=== PATIENT | male | born 1990 | race Hispanic/Latino ===

== ENCOUNTER 2019-11-08 16:26 | Emergency (ER) | payer SELFPAY ==
[2019-11-08] MEDS ORDERED: HYDROcodone/Acetaminophen 10/325 mg Tablet ONE (17:13)
[2019-11-08] MEDS ORDERED: Ketorolac Tromethamine 30 MG/ML VIAL ONE (17:58)
--- NOTE | 2019-11-08 18:14 | CT ---
NONCONTRAST CT HEAD: 11/08/19 HISTORY: Head injury after ladder fell on head and neck. Headache with pain running down medial occipital juany on. COMPARISON: None. FINDINGS: There is no evidence of a hemorrhage, acute infarction, mass effect, or midline shift. The ventricula r system is normal in size, shape and position. There is minimal scalp soft tissue swelling seen with in the posterior parietal region near the vertex. There is no evidence of a calvarial fracture. The v isualized paranasal sinuses and mastoid air cells are clear. IMPRESSION: No acute intracranial abnormality is demonstrated. POS: H
--- NOTE | 2019-11-08 18:18 | CT ---
NONCONTRAST CT CERVICAL SPINE 11/08/19 HISTORY: Ladder fell on patient's head. The patient now has head and neck pain. TECHNIQUE: Contiguous axial CT images are obtained through the cervical spine from the skull base to the level o f the T1 vertebral body. Sagittal and coronal reformatted images are provided. FINDINGS: Vertebral body heights and intervertebral disc spaces are within normal limits. The interspinous dist ances appear to be within normal limits. No fracture or subluxation is seen involving the cervical sp ine. There is a midline defect seen in the posterior arch of the C5 vertebral body which is corticate d on either side of the lucency, this is most likely developmental in origin. No acute fracture or vallejo bluxation is seen involving the cervical spine. There is no bony encroachment of the central spinal canal or neural foramina at any level. No prevertebral soft tissue swelling is identified. Limited visualized lung apices are clear. IMPRESSION: No acute fracture or subluxation involving the cervical spine. POS: FILEMON
== END 2019-11-08 18:10 | disposition home or self-care (01) ==
LOC: ERS 16:26
DX: S09.90XA Unspecified injury of head, initial encounter (principal); M54.2 Cervicalgia; F17.210 Nicotine dependence, cigarettes, uncomplicated; W20.8XXA Other cause of strike by thrown, projected or falling object, initial encounter
CPT/HCPCS: 70450; 72125; 96372; J1885; L0120